=== PATIENT | male | born 1965 | race Caucasian/White ===

== ENCOUNTER → 2017-11-15 | Outpatient (CLI) | payer BC ==
[~2017-11-15] MED LIST: AMLO10TA3 PO; CHOL400T; EPLE50TA; EPLERENONE 50 MG; FLX10 PO; GLC/500 PO; GLC500 PO; GLIM2TAB PO; GLIM4TAB2 PO; HYDR25TA5; HYZ/10015 PO; INSHNI; INSU1INJ23 SQ; LIRA18IN; LISI40TA3 PO; POTA-335 PO
[2017-11-15 11:16] LABS: HEMOGLOBIN A1C 7.8 % (4.5-5.6)
[2017-11-15 11:23] LABS: ALBUMIN 3.9 gm/dl (3.4-5.0); ALT/SGPT 81 U/L (12-78); AST/SGOT 34 U/L (15-37); BLOOD UREA NITROGEN 17 mg/dl (7-18); CALCIUM 8.9 mg/dl (8.5-10.1); CARBON DIOXIDE 27 mmol/L (21-32); GLUCOSE 164 mg/dl (70-99); LDL CHOLESTEROL (DIRECT) 135 mg/dl; POTASSIUM 3.7 mmol/L (3.5-5.1); SODIUM 134 mmol/L (136-145)
[2017-11-15 11:36] LABS: ALKALINE PHOSPHATASE 98 U/L (45-117); CHOLESTEROL 209 mg/dl (0-200); TOTAL PROTEIN 7.8 gm/dl (6.4-8.2)
== END | disposition home or self-care (01) ==
LOC: C.LAB1850 09:35
PROVIDERS: ATTEND Internal Medicine Endocrinology, Diabetes & Metabolism
DX: E55.9 Vitamin D deficiency, unspecified (principal); E26.9 Hyperaldosteronism, unspecified; Z86.39 Personal history of other endocrine, nutritional and metabolic disease; D49.7 Neoplasm of unspecified behavior of endocrine glands and other parts of nervous system; I10 Essential (primary) hypertension; E66.9 Obesity, unspecified; E11.9 Type 2 diabetes mellitus without complications; E78.5 Hyperlipidemia, unspecified; R80.9 Proteinuria, unspecified

== ENCOUNTER 2018-03-30 13:08 | Emergency (ER) | payer BC, OTHER ==
[~2018-03-30] VITALS: Ht 189.2 cm; Wt 116.5 kg
[~2018-03-30 13:08] MED LIST changes: -AMLO10TA3 PO; -CHOL400T; -EPLE50TA; -GLC/500 PO; -GLIM2TAB PO; -GLIM4TAB2 PO; -HYDR25TA5; -HYZ/10015 PO; -INSHNI; -INSU1INJ23 SQ; -LIRA18IN; -LISI40TA3 PO
[2018-03-30 13:14] VITALS: TEMP 36.6; Ht 189.2 cm; Wt 116.5 kg
[2018-03-30] MEDS ORDERED: OPTIRAY 320 IV PRN (13:45)
[2018-03-30 13:55] LABS: BASO % 0.4 %; BASO ABS # 0.03 K/uL (0-0.2); EOS % 0.2 %; EOS ABS # 0.02 K/uL (0-0.5); HEMATOCRIT 44.2 % (42-52); HEMOGLOBIN 15.8 g/dL (14.0-18.0); IG# 0.01 K/uL (0.00-0.02); LYMPH % 16.6 %; LYMPH ABS # 1.33 K/uL (1.2-3.4); MEAN CELL VOLUME 79.9 fL (80-100); MEAN CORPUSCULAR HEMOGLOBIN 28.6 pg (25-34); MEAN CORPUSCULAR HGB CONC 35.7 g/dl (32-36); MEAN PLATELET VOLUME 10.8 fL (7.4-10.4); MONO % 10.5 %; MONO ABS # 0.84 K/uL (0.11-0.59); NEUT % 72.2 %; PLATELET COUNT 183 K/uL (130-400); RED CELL DISTRIBUTION WIDTH CV 13.3 % (11.5-14.5); RED CELL DISTRIBUTION WIDTH SD 38.3 fL (36.4-46.3); WHITE BLOOD COUNT 8.03 K/uL (4.8-10.8)
[2018-03-30 14:13] LABS: ALBUMIN 3.6 gm/dl (3.4-5.0); CALCIUM 8.7 mg/dl (8.5-10.1); CREATININE 1.09 mg/dl (0.60-1.40); POTASSIUM 3.5 mmol/L (3.5-5.1)
[2018-03-30] MEDS ORDERED: GLC/500 PO (14:15)
[2018-03-30] MEDS ORDERED: AMLO-114 PO (14:15)
[2018-03-30] MEDS ORDERED: GLIM4TAB2 PO (14:15)
[2018-03-30] MEDS ORDERED: LIRA18IN (14:15)
[2018-03-30] MEDS ORDERED: GLIM2TAB PO (14:15)
[2018-03-30] MEDS ORDERED: INSHNI (14:15)
[2018-03-30] MEDS ORDERED: HYZ/10015 PO (14:15)
[2018-03-30] MEDS ORDERED: LSN40 PO (14:15)
[2018-03-30] MEDS ORDERED: EPLE50TA (14:15)
[2018-03-30] MEDS ORDERED: HYDR25TA5 (14:15)
[2018-03-30] MEDS ORDERED: CHOL400T (14:15)
[2018-03-30] MEDS ORDERED: INSU1INJ23 SQ (14:15)
[2018-03-30 14:24] LABS: TOTAL PROTEIN 7.7 gm/dl (6.4-8.2)
--- NOTE | 2018-03-30 14:57 | EMERGENCY ROOM VISIT NOTE ---
History First contact with patient: 13:18 Chief Complaint: GI ASSESSMENT Stated Complaint: FEVER, GI DISTRESS, REF BY Nursing Triage Summary: Pt ambulates to room. Reports diarrhea since Monday. Went to [facility] and suggested that pt should go to the ER because no BS x 4 quads present. Auscultated hypo bowel sounds x 4 quads. Abd distended, soft ad tender in lower quads. History of Present Illness The patient is a 52 year old male who presents to the Emergency Room via private vehicle with complaints of "fever, GI distress, referred by ". The patient states that since Monday he has been experiencing lower abdominal cramping, decreased bowel movements and nausea. He states it is been increasingly worsening. At times of a fever with T-max being 101.8 orally. He has been diaphoretic. He denies any chest pain or shortness of breath. He has never had this before. He notes that he has had a few episodes of liquid diarrhea, with his last solid bowel movement being Monday. He notes that this is exacerbated by eating food. Review of Systems A complete 10-point Review of Systems was discussed with the patient, with pertinent positives and negatives listed in the History of Present Illness. All remaining Review of Systems questions can be considered negative unless otherwise specified. Past Medical/Surgical History No pertinent Family History Non contributory Social History Smoking Status: Never Smoker Pt. lives locally Current/Historical Medications Scheduled Amlodipine (Norvasc), 10 MG PO DAILY Glimepiride (Glimepiride), 1 TAB PO DAILY Hctz/Losartan (Hyzaar 25MG/100MG), 1 TAB PO DAILY Insulin Isophane (Human) (Humulin N Kwikpen), 60-100 UNITS SQ QPM Lisinopril (Lisinopril), 1 TAB PO DAILY Metformin Hcl (Glucophage), 500 MG PO BID Miscellaneous Medications Cholecalciferol (Vitamin D) Eplerenone (Inspra) Glimepiride (Amaryl), 2 MG PO Hydrochlorothiazide (Hydrochlorothiazide) Insulin Human NPH (Humulin N) Liraglutide (Victoza) Physical Exam Vital Signs Date Time Temp Pulse Resp B/P (MAP) Pulse Ox O2 Delivery O2 Flow Rate FiO2 03/30/18 17:01 85 16 123/77 97 Room Air 03/30/18 15:28 82 123/79 96 Room Air 03/30/18 13:14 36.6 87 18 131/74 96 Room Air Physical Exam VITAL SIGNS - Vital signs and nursing notes were reviewed. Stable. GENERAL -52-year-old male appearing his stated age who is in no acute distress. Communicates well with provider and answers questions appropriately. SKIN - Without rashes. HEAD - NC/AT. EYES - PERRL with EOMI bilaterally. Sclera anicteric. EARS - No deformities of external structures noted on gross examination bilaterally. LUNGS - Chest wall symmetric without accessory muscle use, intercostals retractions, or central cyanosis. Normal vesicular breath sounds CTA B/L. No wheezes, rales, or rhonchi appreciated. CARDIAC - RRR with S1/S2. No murmur, rubs, or gallops appreciated. ABDOMEN - Abdominal contour normal without pulsations or visible masses. Decreased bowel sounds noted in the lower quadrants. There is left upper quadrant abdominal bowel sounds noted. These are hypoactive. There is also minimal generalized abdominal tenderness. No rebound tenderness. No surgical abdomen. EXTREMITIES - No clubbing or peripheral cyanosis. No pretibial edema present. +5 /5 strength noted in UE/LE bilaterally. NEUROLOGIC - Cranial nerves II through XII grossly intact. Sensory intact to light touch throughout. PSYCH - A&O, and cooperates fully with examiner. Pt is very pleasant and interacts well with examiner. Medical Decision & Procedures ER Provider Diagnostic Interpretation: ABDOMEN AND PELVIS CT WITH IV AND ORAL CONTRAST CT DOSE: 1093.36 mGycm HISTORY: lower abdomininal pain, nausea, decrease stool output TECHNIQUE: Multiaxial CT images of the abdomen and pelvis were performed following the use of intravenous and oral contrast. A dose lowering technique was utilized adhering to the principles of ALARA. COMPARISON STUDY: Abdominal CT 01/20/2011. FINDINGS: Groundglass opacities within the right lung base favor mild dependent changes. No pneumoperitoneum. No pneumatosis. No suspicious lytic or blastic osseous lesions. Bilateral gynecomastia. Mild hepatic steatosis is again noted. The gallbladder, pancreas, spleen, adrenal glands, and kidneys are unremarkable. No hydronephrosis. No retroperitoneal lymphadenopathy. Normal caliber abdominal aorta. The bladder is unremarkable. Mild diffuse thickening of the entire colon with mild pericolonic fat stranding. This is most pronounced within the ascending colon and cecum. This is consistent with a pancolitis. No evidence for bowel obstruction. Normal appendix. IMPRESSION: 1. Nonspecific pancolitis. This is likely due to an infectious or inflammatory process. 2. No evidence for bowel obstruction. 3. Normal appendix. 4. Mild hepatic steatosis. Electronically signed by: Vitaliy Shahid M.D. 03/30/2018 4:58 PM Dictated Date/Time: 03/30/2018 4:51 PM Laboratory Results 03/30/18 13:34 Red Blood Count 5.53, Mean Corpuscular Volume 79.9, Mean Corpuscular Hemoglobin 28.6, Mean Corpuscular Hemoglobin Concent 35.7, Mean Platelet Volume 10.8, Neutrophils (%) (Auto) 72.2, Lymphocytes (%) (Auto) 16.6, Monocytes (%) (Auto) 10.5, Eosinophils (%) (Auto) 0.2, Basophils (%) (Auto) 0.4, Neutrophils # (Auto ) 5.80, Lymphocytes # (Auto) 1.33, Monocytes # (Auto) 0.84, Eosinophils # (Auto ) 0.02, Basophils # (Auto) 0.03 03/30/18 13:34 Test 03/30/18 13:34 03/30/18 13:55 White Blood Count 8.03 K/uL (4.8-10.8) Red Blood Count 5.53 M/uL (4.7-6.1) Hemoglobin 15.8 g/dL (14.0-18.0) Hematocrit 44.2 % (42-52) Mean Corpuscular Volume 79.9 fL (80-100) Mean Corpuscular Hemoglobin 28.6 pg (25-34) Mean Corpuscular Hemoglobin Concent 35.7 g/dl (32-36) Platelet Count 183 K/uL (130-400) Mean Platelet Volume 10.8 fL (7.4-10.4) Neutrophils (%) (Auto) 72.2 % Lymphocytes (%) (Auto) 16.6 % Monocytes (%) (Auto) 10.5 % Eosinophils (%) (Auto) 0.2 % Basophils (%) (Auto) 0.4 % Neutrophils # (Auto) 5.80 K/uL (1.4-6.5) Lymphocytes # (Auto) 1.33 K/uL (1.2-3.4) Monocytes # (Auto) 0.84 K/uL (0.11-0.59) Eosinophils # (Auto) 0.02 K/uL (0-0.5) Basophils # (Auto) 0.03 K/uL (0-0.2) RDW Standard Deviation 38.3 fL (36.4-46.3) RDW Coefficient of Variation 13.3 % (11.5-14.5) Immature Granulocyte % (Auto) 0.1 % Immature Granulocyte # (Auto) 0.01 K/uL (0.00-0.02) Anion Gap 6.0 mmol/L (3-11) Est Creatinine Clear Calc Drug Dose 105.8 ml/min Estimated GFR () 88.7 Estimated GFR (Non- 76.5 BUN/Creatinine Ratio 14.7 (10-20) Calcium Level 8.7 mg/dl (8.5-10.1) Magnesium Level 1.9 mg/dl (1.8-2.4) Total Bilirubin 1.2 mg/dl (0.2-1) Aspartate Amino Transf (AST/SGOT) 21 U/L (15-37) Alanine Aminotransferase (ALT/SGPT) 54 U/L (12-78) Alkaline Phosphatase 100 U/L (45-117) Total Protein 7.7 gm/dl (6.4-8.2) Albumin 3.6 gm/dl (3.4-5.0) Globulin 4.1 gm/dl (2.5-4.0) Albumin/Globulin Ratio 0.9 (0.9-2) Lipase 111 U/L (73-393) Thyroid Stimulating Hormone (TSH) 1.580 uIu/ml (0.300-4.500) Urine Color YELLOW Urine Appearance CLEAR (CLEAR) Urine pH 5.0 (4.5-7.5) Urine Specific Otis 1.026 (1.000-1.030) Urine Protein NEG (NEG) Urine Glucose (UA) 3+ (NEG) Urine Ketones NEG (NEG) Urine Occult Blood NEG (NEG) Urine Nitrite NEG (NEG) Urine Bilirubin NEG (NEG) Urine Urobilinogen NEG (NEG) Urine Leukocyte Esterase NEG (NEG) Medical Decision Patient was seen and evaluated as above in room C 10. Review was performed of nursing notes and vital signs. After obtaining a thorough history and physical examination the above work up was performed. He presents to us today with diffuse abdominal pain, worse on the right side as well as diarrhea. He is nontoxic on examination. No evidence of surgical examination. CBC reveals no leukocytosis or anemia. Metabolic panel reveals no evidence of kidney or liver function. Bilirubin elevated at 1.2. TSH is normal. Urinalysis reveals 3+ glucose. He does have diabetes. CT scan of the abdomen and pelvis with IV and oral contrast was obtained. Results as above. There is pancolitis. I suspect this is likely either viral or food etiology. Stool culture, C. difficile and Giardia test pending. At this time I will refrain from adding any antibiotics. He is to follow with his family doctor and possibly GI. He notes that he is due for a colonoscopy. I did reveal/review all test results with the patient and his today. He is to utilize a bland diet for the next few days and return with worsening. The patient was educated upon management, had questions answered prior to discharge, and was discharged home in good condition. Case was discussed with the attending physician. In the evaluation and treatment of this patient the following differential diagnoses were entertained: Colitis, C. difficile, perforation, appendicitis, diverticulitis, pancreatitis, acute cholecystitis, among others. Impression Primary Impression: Pancolitis Departure Information Dispostion Home / Self-Care Condition GOOD Referrals Abel Bowens M.D. (PCP) Martha Lee, DO Patient Instructions ED Diet [place], [facility] Additional Instructions You have been treated in the Emergency Department your Abdominal Pain. Laboratory results and imaging studies have ruled out any emergent causes for your abdominal pain which would warrant admission or surgery. There is pancolitis which is inflammation of your intestine. This is likely from a small infection. For pain control, you can use the following [id number] medicines: - Regular strength (325mg/tab) Tylenol (acetaminophen) 2 tabs every 4-6 hours as needed. Do not exceed 12 tablets in a 24 hour period. Avoid taking more than 3 grams (3000 mg) of Tylenol per day. This includes any other sources of acetaminophen you may take on a regular basis. - Regular strength (200 mg/tab) Advil (ibuprofen) 1-2 tabs every 4-6 hours as needed. Do not exceed a dose of 3200 mg per day. Drink plenty of water and stay well hydrated. As with any trip to the Emergency Department, you should follow-up with your Primary Care Provider from today's visit. I have also listed the contact information for GI. It is recommended he follow- up with them. If you do not hear back from us within 3 days regarding your stool culture please call here at [phone]. Please ask the charge nurse to discuss your stool culture result. Thank you Return to the emergency department if your symptoms persist despite treatment plan outlined above or if the following symptoms occur: increased fevers, chills , worsening nausea/vomiting, blood in your stool or urine. Thank you for your time.
--- NOTE | 2018-03-30 17:00 | DIAGNOSTIC IMAGING REPORT ---
ABDOMEN AND PELVIS CT WITH IV AND ORAL CONTRAST CT DOSE: 1093.36 mGycm HISTORY: lower abdomininal pain, nausea, decrease stool output TECHNIQUE: Multiaxial CT images of the abdomen and pelvis were performed following the use of intravenous and oral contrast. A dose lowering technique was utilized adhering to the principles of ALARA. COMPARISON STUDY: Abdominal CT 01/20/2011. FINDINGS: Groundglass opacities within the right lung base favor mild dependent changes. No pneumoperitoneum. No pneumatosis. No suspicious lytic or blastic osseous lesions. Bilateral gynecomastia. Mild hepatic steatosis is again noted. The gallbladder, pancreas, spleen, adrenal glands, and kidneys are unremarkable. No hydronephrosis. No retroperitoneal lymphadenopathy. Normal caliber abdominal aorta. The bladder is unremarkable. Mild diffuse thickening of the entire colon with mild pericolonic fat stranding. This is most pronounced within the ascending colon and cecum. This is consistent with a pancolitis. No evidence for bowel obstruction. Normal appendix. IMPRESSION: 1. Nonspecific pancolitis. This is likely due to an infectious or inflammatory process. 2. No evidence for bowel obstruction. 3. Normal appendix. 4. Mild hepatic steatosis. Electronically signed by: Vitaliy Shahid M.D. 03/30/2018 4:58 PM Dictated Date/Time: 03/30/2018 4:51 PM
[2018-03-30 17:45] VITALS: BP 124/78; PULSE 76; O2SAT 96
--- NOTE | 2018-04-02 12:22 | Pharmacy Progress Note ---
ED Pharmacist Culture FollowUp Date of Service: April 02, 2018. Campylobacter jejuni isolated from stool culture. Per nursing notes, patient has already been informed and plan for care discussed / prescription provided. No further intervention required at this time.
== END 2018-03-30 17:43 | disposition home or self-care (01) ==
LOC: C.EDB 13:10 → C.EDC 17:43
DX: K51.00 Ulcerative (chronic) pancolitis without complications (principal); E11.9 Type 2 diabetes mellitus without complications; Z79.4 Long term (current) use of insulin

== ENCOUNTER 2024-04-02 20:12 | Observation (INO) ==
[2024-04-02 21:06] LABS: Basophils % (auto) 1.1 %; Eosinophils # (auto) 0.15 K/uL (0.00-0.50); Eosinophils % (auto) 1.7 %; Hematocrit (blood only) 44.6 % (42.0-52.0); Immature Granulocytes # (auto) 0.03 K/uL (0.01-0.20); Immature Granulocytes % (auto) 0.3 %; Lymphocytes % (auto) 29.9 %; Mean Corpuscular Hemoglobin 28.6 pg (25.0-34.0); Mean Corpuscular Hgb Conc 35.9 g/dL (32.0-36.0); Mean Corpuscular Volume 79.6 fL (80.0-100.0); Monocytes # (auto) 0.61 K/uL (0.11-0.59); Neutrophils # (auto) 5.21 K/uL (1.40-6.50); Platelet Count 267 K/uL (130-400); RDW Coefficient of Variation 13.4 % (11.5-14.5); RDW Standard Deviation 38.5 fL (36.4-46.3)
[2024-04-02 21:24] LABS: Appearance Urine Clear (Clear); Bilirubin Urine Negative (Negative); Blood Urine Negative (Negative); Color Urine Yellow; Glucose Urine UA 3+ (Negative); Ketones Urine Negative (Negative); Leukocyte Esterase Urine Negative (Negative); Nitrite Urine Negative (Negative); Protein Urine Negative (Negative); Specific Gravity Urine 1.031 (1.000-1.030); Urobilinogen Urine Negative (Negative)
--- NOTE | 2024-04-02 21:24 | CT Scan Report ---
Exam(s): CT HEAD Without Contrast EXAM: CT Head Without Intravenous Contrast CLINICAL HISTORY: Reason for exam: syncope. TECHNIQUE: Axial computed tomography images of the head/brain without intravenous contrast. CTDI is 36.18 mGy and DLP is 624.41 mGy-cm. Automated exposure control was utilized for the study. A dose lowering technique was utilized adhering to the principles of ALARA. COMPARISON: Brain MRI May 07, 2021. FINDINGS: No acute intracranial hemorrhage. No midline shift or mass effect. The territorial guido-white matter differentiation is maintained throughout. Age-related cerebral volume loss. Periventricular and subcortical white matter hypoattenuation, consistent with chronic microangiopathy. The visualized orbits appear grossly unremarkable. The calvarium is intact. The visualized paranasal sinuses and mastoid air cells are grossly clear. IMPRESSION: No acute intracranial hemorrhage, midline shift, or mass effect. Electronically signed by: Robles Jones MD 04/02/24 21:23 PM
--- NOTE | 2024-04-02 21:25 | CT Scan Report ---
Exam(s): CT C SPINE EXAM: CT Cervical Spine Without Intravenous Contrast CLINICAL HISTORY: Reason for exam: fall, injury. TECHNIQUE: Axial computed tomography images of the cervical spine without intravenous contrast. CTDI is 26.3 mGy and DLP is 647.9 mGy-cm. Automated exposure control was utilized for the study. A dose lowering technique was utilized adhering to the principles of ALARA. COMPARISON: No relevant prior studies available. FINDINGS: The vertebral body heights are maintained. The craniocervical junction is intact. The atlanto-dens interval is maintained. The dens is intact. There is no spondylolisthesis. Multilevel cervical spondylosis and degenerative disc disease. Straightening of the cervical lordosis. The unenhanced neck soft tissues are grossly unremarkable. The visualized lung apices are grossly clear. IMPRESSION: No acute fracture or subluxation of the cervical spine. Electronically signed by: Robles Jones MD 04/02/24 21:24 PM
[2024-04-02 21:46] LABS: Glucose 336 mg/dl (70-99(Fasting))
[2024-04-02 21:47] LABS: Alanine Aminotransferase 68 U/L (7-52); Albumin Globulin Ratio 1.7 (0.9-2); Albumin Level 4.3 gm/dl (3.4-5.0); Alkaline Phosphatase 72 U/L (34-104); Anion Gap 10 (3-11); BUN Creatinine Ratio 20.7 (10-20); Bilirubin,Total 0.2 mg/dl (0.2-1.0); Blood Urea Nitrogen 23 mg/dl (6-23); Calcium 9.8 mg/dl (8.6-10.3); Carbon Dioxide 26 mmol/L (21-32); Chloride 97 mmol/L (98-107); Est GFR (African American) 83.2 ml/min; Est GFR (Non-African American) 71.8 ml/min; Globulin 2.6 gm/dl (2.5-4.0); Sodium 133 mmol/L (136-145); Total Protein 6.9 gm/dl (6.0-8.3)
[2024-04-02] MEDS: SODIUM CHLORIDE 0.9% 1,000 ML IV ONE (22:16)
[2024-04-02 22:40] LABS: Aspartate Aminotransferase 51 U/L (13-39); Magnesium 1.9 mg/dl (1.7-2.4); Potassium 4.1 mmol/L (3.5-5.1)
--- NOTE | 2024-04-02 22:55 | Emergency Department Note ---
History of Present Illness General Chief complaint: Syncope (Near Syncope) Stated complaint: FAINTED, HIT HEAD, RT HIP/KNEE PAIN Time Seen by Provider: 04/02/24 22:07 History of Present Illness This 58-year-old male presents ER for syncope. Patient states they went out to dinner for their anniversary when he got home he got out of the car else out of it for second and then collapsed. He hit his head on the car. Patient states he feels much better now. He has mild hip pain but is been ambulating without difficulties. No recent history of syncope. Patient denies chest pain, dyspnea, abdominal pain, numbness, tingling, localized weakness. No blood thinners. Does have diabetes. He states he acute Lyme pie and believes this is why his blood sugar is elevated. No prior cardiac disease. Home Medications Medication Instructions Recorded Confirmed Type blood-glucose meter (Accu-Chek #1 ea 06/04/20 06/26/23 Rx Guide Glucose Meter) cholecalciferol (vitamin D3) 50 50 mcg PO DAILY 06/09/21 04/02/24 History mcg (2,000 unit) capsule cyanocobalamin (vitamin B-12) 1,000 mcg PO DAILY 02/25/22 04/02/24 History 1,000 mcg capsule magnesium oxide 400 mg PO DAILY #30 caps 02/25/22 04/02/24 Rx Accu-Chek Fastclix Lancet Drum #400 ea 10/21/22 06/26/23 Rx (lancets) empagliflozin 25 mg tablet 25 mg PO DAILY #90 tabs 03/20/23 04/02/24 Rx (Jardiance) blood sugar diagnostic (Accu-Chek #200 ea 05/22/23 06/26/23 Rx Guide test strips) testosterone 2 pump topical DAILY #225 grams 10/06/23 04/02/24 Rx semaglutide 1 mg/dose (4 mg/3 mL) 1 mg (0.75 mL) subcut Q7D 30 days 11/27/23 04/02/24 Rx subcutaneous pen injector (Ozempic) #3 mL pen needle, diabetic 32 gauge x #200 ea 12/04/23 Rx 5/32" (BD Ultra-Fine Danelle Pen Needle) amlodipine 10 mg tablet 10 mg PO DAILY #90 tabs 01/31/24 04/02/24 Rx eplerenone 50 mg tablet 50 mg PO BID #180 tabs 02/28/24 04/02/24 Rx hydrochlorothiazide 25 mg tablet 25 mg PO DAILY #90 tabs 02/28/24 04/02/24 Rx lisinopril 40 mg tablet 40 mg PO DAILY #90 tabs 02/28/24 04/02/24 Rx metformin 500 mg tablet 1,000 mg (2 x 500 mg) PO BID 90 02/28/24 04/02/24 Rx days #360 tabs Novolin N FlexPen 100 unit/mL (3 130 unit (1.3 mL) subcut HS 90 03/28/24 04/02/24 Rx mL) subcutaneous insulin pen days #120 mL (insulin NPH isoph U-100 human) ammonium lactate 12 % lotion 1 applic topical DAILY PRN 04/02/24 04/02/24 History NEEDED aspirin 81 mg tablet,delayed 81 mg PO DAILY 04/02/24 04/02/24 History release glimepiride 4 mg tablet 4 mg PO QPM 04/02/24 04/02/24 History liraglutide 0.6 mg/0.1 mL (18 mg/3 1.8 mg subcut DAILY 04/02/24 04/02/24 History mL) subcutaneous pen injector (Victoza 3-Shaji) rosuvastatin 5 mg tablet (Crestor) 5 mg PO WK 04/02/24 04/02/24 History Allergies Allergy/AdvReac Type Severity Reaction Status Date / Time atorvastatin AdvReac Severe Leg Cramps Verified 04/02/24 22:50 Past Med/Surg History Problem List (Updated 04/02/24 @ 23:50 by Johanny Cosme PA-C) Acute hyperglycemia (Acute) Syncope (Acute) Overweight Vitamin D deficiency Background diabetic retinopathy associated with type 2 diabetes mellitus No significant past surgical history Hypertension 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 Diabetes type 2, controlled Dysesthesia Dyslipidemia Hyperprolactinemia Hypogonadotropic hypogonadism in male Loss of protective sensation of skin of foot Pituitary neoplasm Severe obstructive sleep apnea Social History Smoking Status: Never smoker Preferred Language: Grenadian Feels Safe at Home: Yes Review of Systems A total of 10 systems reviewed and were otherwise negative Physical Exam Vital Signs Vital Signs - 24 hr 04/02/24 20:24 04/02/24 22:23 04/02/24 22:31 Temperature 36.8 C Temperature Source Temporal Artery Scan Pulse Rate - Lying 87 Pulse Rate - Sitting 95 H Pulse Rate - Standing 99 H Pulse Rate 91 H Pulse Rate [Apical] 85 Pulse Rhythm Pulse Rhythm [Apical] Regular Pulse Strength [Apical] Normal Respiratory Rate 18 17 Respiratory Effort / Characteristics Non-Labored Spontaneous Respiratory Depth Normal Respiratory Pattern Regular Blood Pressure - Lying 171/90 H Blood Pressure - Sitting 166/86 H Blood Pressure- Standing 169/90 H Blood Pressure 155/85 H Blood Pressure [Right Arm] 172/97 H Blood Pressure Mean 108 Blood Pressure Mean [Right Arm] 122 Blood Pressure Position [Right Arm] Sitting Pulse Oximetry 95 93 Oxygen Delivery Method Room Air Room Air Sepsis Recent Fever Within 48 Hours No Sepsis New/Unexplained Change in Mental Status No Sepsis Action Taken by Nursing No Action Required 04/02/24 22:32 04/02/24 22:39 Temperature Temperature Source Pulse Rate - Lying Pulse Rate - Sitting Pulse Rate - Standing Pulse Rate 86 86 Pulse Rate [Apical] Pulse Rhythm Regular Pulse Rhythm [Apical] Pulse Strength [Apical] Respiratory Rate 18 Respiratory Effort / Characteristics Respiratory Depth Respiratory Pattern Blood Pressure - Lying Blood Pressure - Sitting Blood Pressure- Standing Blood Pressure Blood Pressure [Right Arm] Blood Pressure Mean Blood Pressure Mean [Right Arm] Blood Pressure Position [Right Arm] Pulse Oximetry 94 Oxygen Delivery Method Room Air Sepsis Recent Fever Within 48 Hours Sepsis New/Unexplained Change in Mental Status Sepsis Action Taken by Nursing VITALS: Vitals are noted on the nurse's note and reviewed by myself. Vital signs stable. GENERAL: Pleasant gentleman with present, in no acute distress, nondiaphoretic, well-developed well-nourished. SKIN: The skin was without rashes, erythema, edema, or bruising. There is no tenting of the skin. Capillary reflex less than 2 seconds. HEAD: Normocephalic atraumatic. EARS: External auditory canals clear EYES: Pupils equal round and reactive to light and accommodation. Conjunctivae without injection, sclerae without icterus. Extraocular movements intact. NOSE: Patent, no discharge. MOUTH: Mucous membranes moist. Pharynx without erythema or exudate. Uvula midline. Airway patent. Tongue does not deviate. NECK: Supple without nuchal rigidity. No lymphadenopathy. No thyromegaly. Cervical spine is nontender. No JVD. HEART: Regular rate and rhythm LUNGS: Clear to auscultation bilaterally without wheezes, rales or rhonchi. No retractions or accessory muscle use. ABDOMEN: Positive bowel sounds x 4. Normal tympanic percussion. Soft, nontender, without masses or organomegaly. Galvan sign negative. No guarding or rebound tenderness. No CVA tenderness MUSCULOSKELETAL: No muscle atrophy, erythema, or edema noted. 5-5 strength throughout. No thoracic or lumbar tenderness. Pelvis stable. NEURO: Patient was alert and oriented to person place and time. Cranial nerves II through XII grossly intact. No pronator drift. Cerebellar exam intact. Normal sensation to light and sharp touch. No focal neurological deficits. Course Administered Medications Discontinued Medications Sodium Chloride (Nss) 1,000 mls @ 999 mls/hr IV .Q1H1M ONE Stop: 04/02/24 23:08 Last Infusion: 04/02/24 23:40 Dose: Infused Documented By: Admin: 04/02/24 22:16 Dose: 999 mls/hr Documented By: EUGENE Medical Decision Making Medical Records Attestation: I reviewed the patient's medical records. Home Medications Current Medication List: was personally reviewed by me Laboratory Data Attestation: I reviewed the patient's lab results. 04/02/24 20:35 04/02/24 20:35 Lab Results 04/02/24 04/02/24 04/02/24 Range/Units 20:35 20:53 22:23 WBC 8.70 (4.8-10.8) K/ul RBC 5.60 (4.70-6.10) M/uL Hgb 16.0 (14.0-18.0) g/dl Hct 44.6 (42.0-52.0) % MCV 79.6 L (80.0-100.0) fL MCH 28.6 (25.0-34.0) pg MCHC 35.9 (32.0-36.0) g/dL RDW Std Deviation 38.5 (36.4-46.3) fL RDW Coeff of Dior 13.4 (11.5-14.5) % Plt Count 267 (130-400) K/uL MPV 12.0 (9.4-12.4) fL Immature Gran % (Auto) 0.3 % Neut % (Auto) 60.0 % Lymph % (Auto) 29.9 % [place] % (Auto) 7.0 % Eos % (Auto) 1.7 % Baso % (Auto) 1.1 % Neut # (Auto) 5.21 (1.40-6.50) K/uL Lymph # (Auto) 2.60 (1.20-3.40) K/uL [place] # (Auto) 0.61 H (0.11-0.59) K/uL Eos # (Auto) 0.15 (0.00-0.50) K/uL Baso # (Auto) 0.10 (0.00-0.20) K/uL Immature Gran # (Auto) 0.03 (0.01-0.20) K/uL Sodium 133 L (136-145) mmol/L Potassium 4.1 (3.5-5.1) mmol/L Chloride 97 L (98-107) mmol/L Carbon Dioxide 26 (21-32) mmol/L Anion Gap 10 (3-11) BUN 23 (6-23) mg/dl Creatinine 1.11 (0.6-1.4) mg/dl Est Cr Clr Drug Dosing Not Reportable Est GFR ( Amer) 83.2 ml/min Est GFR (Non-Af Amer) 71.8 ml/min BUN/Creatinine Ratio 20.7 H (10-20) Glucose 336 H* (70-99(Fasting)) mg/dl POC Glucose (70-99) mg/dl Calcium 9.8 (8.6-10.3) mg/dl Magnesium 1.9 (1.7-2.4) mg/dl Total Bilirubin 0.2 (0.2-1.0) mg/dl AST 51 H (13-39) U/L ALT 68 H (7-52) U/L Alkaline Phosphatase 72 (34-104) U/L Troponin I High Sens 14.0 13.8 (0-20) pg/ml Total Protein 6.9 (6.0-8.3) gm/dl Albumin 4.3 (3.4-5.0) gm/dl Globulin 2.6 (2.5-4.0) gm/dl Albumin/Globulin Ratio 1.7 (0.9-2) TSH 2.245 (0.300-4.500) uIu/ml Urine Color Yellow Urine Appearance Clear (Clear) Urine pH 6.0 (4.5-7.5) Ur Specific [place] 1.031 H (1.000-1.030) Urine Protein Negative (Negative) Urine Glucose (UA) 3+ H (Negative) Urine Ketones Negative (Negative) Urine Blood Negative (Negative) Urine Nitrite Negative (Negative) Urine Bilirubin Negative (Negative) Urine Urobilinogen Negative (Negative) Ur Leukocyte Esterase Negative (Negative) 04/02/24 Range/Units 23:43 WBC (4.8-10.8) K/ul RBC (4.70-6.10) M/uL Hgb (14.0-18.0) g/dl Hct (42.0-52.0) % MCV (80.0-100.0) fL MCH (25.0-34.0) pg MCHC (32.0-36.0) g/dL RDW Std Deviation (36.4-46.3) fL RDW Coeff of Dior (11.5-14.5) % Plt Count (130-400) K/uL MPV (9.4-12.4) fL Immature Gran % (Auto) % Neut % (Auto) % Lymph % (Auto) % [place] % (Auto) % Eos % (Auto) % Baso % (Auto) % Neut # (Auto) (1.40-6.50) K/uL Lymph # (Auto) (1.20-3.40) K/uL [place] # (Auto) (0.11-0.59) K/uL Eos # (Auto) (0.00-0.50) K/uL Baso # (Auto) (0.00-0.20) K/uL Immature Gran # (Auto) (0.01-0.20) K/uL Sodium (136-145) mmol/L Potassium (3.5-5.1) mmol/L Chloride (98-107) mmol/L Carbon Dioxide (21-32) mmol/L Anion Gap (3-11) BUN (6-23) mg/dl Creatinine (0.6-1.4) mg/dl Est Cr Clr Drug Dosing Est GFR ( Amer) ml/min Est GFR (Non-Af Amer) ml/min BUN/Creatinine Ratio (10-20) Glucose (70-99(Fasting)) mg/dl POC Glucose 278 H (70-99) mg/dl Calcium (8.6-10.3) mg/dl Magnesium (1.7-2.4) mg/dl Total Bilirubin (0.2-1.0) mg/dl AST (13-39) U/L ALT (7-52) U/L Alkaline Phosphatase (34-104) U/L Troponin I High Sens (0-20) pg/ml Total Protein (6.0-8.3) gm/dl Albumin (3.4-5.0) gm/dl Globulin (2.5-4.0) gm/dl Albumin/Globulin Ratio (0.9-2) TSH (0.300-4.500) uIu/ml Urine Color Urine Appearance (Clear) Urine pH (4.5-7.5) Ur Specific [place] (1.000-1.030) Urine Protein (Negative) Urine Glucose (UA) (Negative) Urine Ketones (Negative) Urine Blood (Negative) Urine Nitrite (Negative) Urine Bilirubin (Negative) Urine Urobilinogen (Negative) Ur Leukocyte Esterase (Negative) Imaging Data Attestation: I personally reviewed and interpreted this imaging study as follows: Radiologist's Impression: Cervical Spine CT 04/02/24 20:28 Exam(s): CT C SPINE EXAM: CT Cervical Spine Without Intravenous Contrast CLINICAL HISTORY: Reason for exam: fall, injury. TECHNIQUE: Axial computed tomography images of the cervical spine without intravenous contrast. CTDI is 26.3 mGy and DLP is 647.9 mGy-cm. Automated exposure control was utilized for the study. A dose lowering technique was utilized adhering to the principles of ALARA. COMPARISON: No relevant prior studies available. FINDINGS: The vertebral body heights are maintained. The craniocervical junction is intact. The atlanto-dens interval is maintained. The dens is intact. There is no spondylolisthesis. Multilevel cervical spondylosis and degenerative disc disease. Straightening of the cervical lordosis. The unenhanced neck soft tissues are grossly unremarkable. The visualized lung apices are grossly clear. IMPRESSION: No acute fracture or subluxation of the cervical spine. Electronically signed by: Robles Jones MD 04/02/24 21:[address] 04/02/24 20:28 Exam(s): CT HEAD Without Contrast EXAM: CT Head Without Intravenous Contrast CLINICAL HISTORY: Reason for exam: syncope. TECHNIQUE: Axial computed tomography images of the head/brain without intravenous contrast. CTDI is 36.18 mGy and DLP is 624.41 mGy-cm. Automated exposure control was utilized for the study. A dose lowering technique was utilized adhering to the principles of ALARA. COMPARISON: Brain MRI May 07, 2021. FINDINGS: No acute intracranial hemorrhage. No midline shift or mass effect. The territorial guido-white matter differentiation is maintained throughout. Age-related cerebral volume loss. Periventricular and subcortical white matter hypoattenuation, consistent with chronic microangiopathy. The visualized orbits appear grossly unremarkable. The calvarium is intact. The visualized paranasal sinuses and mastoid air cells are grossly clear. IMPRESSION: No acute intracranial hemorrhage, midline shift, or mass effect. Electronically signed by: Robles Jones MD 04/02/24 21:23 PM MDM Narrative Prior records/ancillary studies reviewed. Triage Nursing notes reviewed. Additional history obtained from family. The patient's history was concerning for syncope. Differential diagnosis: Etiologies such as vasovagal event, infection, hypoglycemia, electrolyte abnormalities, cardiac sources, intracerebral event, toxicologic, neurologic, as well as others were entertained. Physical examination: As above ER treatment provided: IV hydration with normal saline On reassessment the patient felt better. An order was placed for continuous cardiac monitoring. The monitor shows a rate of 60-100 with a sinus rhythm per my interpretation. Diagnostics interpretation by me: ECG: ordered for syncope ECG: Normal sinus, left bundle, no acute ST-T wave changes, impression left bundle branch block with a first-degree AV block independently interpreted by myself. This is new from prior EKG The labs Independently Interpreted by myself revealed hyperglycemia without DKA Negative troponin Imaging studies: CTs were negative Chest x-ray with no acute consolidation, pneumothorax or free air per my independent interpretation Consultation: A consultation was placed with the hospitalist. The case was discussed and diagnostics were reviewed. The patient was evaluated in the ER for further treatment. This appears to be consistent with syncope. Imaging is negative. Stable labs. New left bundle. Medicine was consulted case discussed. Patient admitted to the medical service for further evaluation and workup for syncopal episode. By the evaluation outlined above emergent etiologies such as infection, hypoglycemia, electrolyte abnormalities, intracerebral event, toxicologic, neurologic,as well as others were deemed relatively unlikely. The pt informed about the findings as listed above. All questions were answered and pleased with the treatment. The chart was completed utilizing [employer] Speech voice recognition software. Grammatical errors, random word insertions, pronoun errors, and incomplete sentences are an occassional consequence of this system due to software limitations, ambient noise, and hardware issues. Any formal questions or concerns about the content, text, or information contained within the body of this dictation should be directly addressed to the physician assistant teacher primary for clarification. Impression & Plan Syncope, Acute hyperglycemia Discharge Plan Visit Data Chief Complaint: Syncope (Near Syncope) Stated Complaint: FAINTED, HIT HEAD, RT HIP/KNEE PAIN ED Provider: Andrew Woodall ED Midlevel Provider: Johanny Cosme Discharge Problem: Syncope, Acute hyperglycemia Patient Disposition: Admitted As Inpatient Condition: Good Forms Stand Alone Forms: [employer] Prescriptions Prescriptions: No Action (DME) blood-glucose meter [Accu-Chek Guide Glucose Meter] Misc See Dose Instructions .ROUTE .MEDSUPPLY Qty: 1 0RF Rx Instructions: As directed (DME) lancets [Accu-Chek Fastclix Lancet Drum] Misc See Dose Instructions .ROUTE .MEDSUPPLY Qty: 400 3RF Rx Instructions: Test blood sugars 4 times a day Jardiance 25 mg tablet 25 mg PO DAILY Qty: 90 3RF (DME) Accu-Chek Guide test strips Strip See Rx Instructions .ROUTE .MEDSUPPLY Qty: 200 3RF Rx Instructions: Test blood sugars 2 times a day testosterone 20.25 mg/1.25 gram (1.62 %) gel in metered-dose pump 2 pump topical DAILY Qty: 225 0RF Rx Instructions: apply 1 pump amount over max area of EACH upper arm and shoulder 05/05/23 PDMP Queried ok to fill - TR (DME) pen needle, diabetic [BD Ultra-Fine Danelle Pen Needle] 32 gauge x 5/32" needle See Rx Instructions .ROUTE .MEDSUPPLY Qty: 200 3RF Dose Instruction: As directed Rx Instructions: Inject 2 times daily amlodipine 10 mg tablet 10 mg PO DAILY Qty: 90 3RF eplerenone 50 mg tablet 50 mg PO BID Qty: 180 3RF hydrochlorothiazide 25 mg tablet 25 mg PO DAILY Qty: 90 3RF lisinopril 40 mg tablet 40 mg PO DAILY Qty: 90 3RF metformin 500 mg tablet 1,000 mg PO BID 90 Days Qty: 360 3RF Novolin N FlexPen 100 unit/mL (3 mL) insulin pen 130 unit subcut HS 90 Days Qty: 120 1RF cholecalciferol (vitamin D3) 50 mcg (2,000 unit) capsule 50 mcg PO DAILY cyanocobalamin (vitamin B-12) 1,000 mcg capsule 1,000 mcg PO DAILY magnesium oxide 400 mg magnesium capsule 400 mg PO DAILY Qty: 30 0RF Ozempic 1 mg/dose (4 mg/3 mL) pen injector 1 mg subcut Q7D 30 Days Qty: 3 1RF Rx Instructions: PER PT "HAVING TROUBLE GETTING FROM PHARMACY, TAKING VICTOZA INSTEAD AT PRESENT". aspirin 81 mg Tablet,Delayed Release (Dr/Ec) 81 mg PO DAILY Victoza 3-Shaji 0.6 mg/0.1 mL (18 mg/3 mL) pen injector 1.8 mg SUBCUT DAILY ammonium lactate 12 % lotion 1 applic topical DAILY PRN (Reason: NEEDED) Rx Instructions: Apply to feet daily glimepiride 4 mg tablet 4 mg PO QPM Rx Instructions: PER PT "IF HAVING A LARGE MEAL AT NIGHT, WILL TAKE 4 MG THE NEXT AM". rosuvastatin [Crestor] 5 mg tablet 5 mg PO WK Rx Instructions: SUNDAYS Referrals Referrals: Abel Bowens MD [Primary Care Provider] - Discharge Problem: Syncope Qualifiers: Syncope type: unspecified Qualified Code(s): R55 - Syncope and collapse
[2024-04-02 23:13] LABS: Thyroid Stimulating Hormone 2.245 uIu/ml (0.300-4.500)
[2024-04-02 23:32] LABS: Troponin I High Sensitivity 13.8 pg/ml (0-20)
--- NOTE | 2024-04-03 00:24 | History & Physical Report ---
Date of Service April 03, 2024 Assessment & Plan (1) Syncope: (2) Acute hyperglycemia: (3) Hypertension: (4) Diabetic peripheral neuropathy associated with type 2 diabetes mellitus: (5) Primary aldosteronism: (6) Pituitary neoplasm: (7) Severe obstructive sleep apnea: (8) Hypogonadotropic hypogonadism in male: (9) Dyslipidemia: Plan Syncope- Glucose was noted to be 336 on admission, patient reports eating a pie rich in carbohydrates at his 30th anniversary dinner No other significant abnormality noted metabolically No loss of bowel or bladder control or postictal state suggestive of a seizure. His , who is a nurse, was with him the entire time, and noticed that he did in fact pass out. Denies any associated palpitations The patient will be admitted to telemetry for serial cardiac enzymes, serial EKG's, cardiac rhythm monitoring and a 2-D echocardiogram with Dopplers. 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 His was with him the entire time, and feels that he did in fact pass out completely. He just returned from his 30th anniversary meal, where he had unusually high carbohydrate intake. He reports that he had been feeling intermittently fatigued throughout the day, but that is not unusual for him. He has been wearing his CPAP at nighttime, and felt that it worked okay last night. Primary Care Provider: Abel Bowens MD The patient is a 58-year-old male with a past medical history including vitamin D deficiency, background diabetic retinopathy, diabetes mellitus type 2, hypertension, diabetic peripheral neuropathy, primary aldosteronism, dyslipidemia, hyperprolactinemia, hypogonadotrophic hypogonadism, pituitary neoplasm, and severe NAHUN. He presents to the emergency department after syncopal episode as noted above. He denies any loss of bowel or bladder control. His is a nurse, and reports that she had checked his pulse and it was in the low 80s, as she was calling EMS. Allergies Allergy/AdvReac Type Severity Reaction Status Date / Time atorvastatin AdvReac Severe Leg Cramps Verified 04/02/24 22:50 Home Medications Medication Instructions Recorded Confirmed Type blood-glucose meter (Accu-Chek #1 ea 06/04/20 06/26/23 Rx Guide Glucose Meter) cholecalciferol (vitamin D3) 50 50 mcg PO DAILY 06/09/21 04/02/24 History mcg (2,000 unit) capsule cyanocobalamin (vitamin B-12) 1,000 mcg PO DAILY 02/25/22 04/02/24 History 1,000 mcg capsule magnesium oxide 400 mg PO DAILY #30 caps 02/25/22 04/02/24 Rx Accu-Chek Fastclix Lancet Drum #400 ea 10/21/22 06/26/23 Rx (lancets) empagliflozin 25 mg tablet 25 mg PO DAILY #90 tabs 03/20/23 04/02/24 Rx (Jardiance) blood sugar diagnostic (Accu-Chek #200 ea 05/22/23 06/26/23 Rx Guide test strips) testosterone 2 pump topical DAILY #225 grams 10/06/23 04/02/24 Rx semaglutide 1 mg/dose (4 mg/3 mL) 1 mg (0.75 mL) subcut Q7D 30 days 11/27/23 04/02/24 Rx subcutaneous pen injector (Ozempic) #3 mL pen needle, diabetic 32 gauge x #200 ea 12/04/23 Rx 5/32" (BD Ultra-Fine Danelle Pen Needle) amlodipine 10 mg tablet 10 mg PO DAILY #90 tabs 01/31/24 04/02/24 Rx eplerenone 50 mg tablet 50 mg PO BID #180 tabs 02/28/24 04/02/24 Rx hydrochlorothiazide 25 mg tablet 25 mg PO DAILY #90 tabs 02/28/24 04/02/24 Rx lisinopril 40 mg tablet 40 mg PO DAILY #90 tabs 02/28/24 04/02/24 Rx metformin 500 mg tablet 1,000 mg (2 x 500 mg) PO BID 90 02/28/24 04/02/24 Rx days #360 tabs Novolin N FlexPen 100 unit/mL (3 130 unit (1.3 mL) subcut HS 90 03/28/24 04/02/24 Rx mL) subcutaneous insulin pen days #120 mL (insulin NPH isoph U-100 human) ammonium lactate 12 % lotion 1 applic topical DAILY PRN 04/02/24 04/02/24 History NEEDED aspirin 81 mg tablet,delayed 81 mg PO DAILY 04/02/24 04/02/24 History release glimepiride 4 mg tablet 4 mg PO QPM 04/02/24 04/02/24 History liraglutide 0.6 mg/0.1 mL (18 mg/3 1.8 mg subcut DAILY 04/02/24 04/02/24 History mL) subcutaneous pen injector (Victoza 3-Shaji) rosuvastatin 5 mg tablet (Crestor) 5 mg PO WK 04/02/24 04/02/24 History Past Med/Surg History Problem List (Updated 04/02/24 @ 23:50 by Johanny Cosme PA-C) Acute hyperglycemia (Acute) Syncope (Acute) Overweight Vitamin D deficiency Background diabetic retinopathy associated with type 2 diabetes mellitus No significant past surgical history Hypertension 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 Diabetes type 2, controlled Dysesthesia Dyslipidemia Hyperprolactinemia Hypogonadotropic hypogonadism in male Loss of protective sensation of skin of foot Pituitary neoplasm Severe obstructive sleep apnea Social History Smoking Status: Never smoker Do You Dip or Chew Tobacco: No; Hx Alcohol Use: Yes (rarely) Hx Substance Use: No Preferred Language: Tunisian Communication Ability: Effective Inspector Screen Printing Required: No Beliefs That Will Affect Care: None Current Living Situation: Spouse and Family Feels Safe at Home: Yes Assistive Devices: Glasses Review of Systems Review of Systems: The patient denies chest pain, palpitations, shortness of breath, dyspnea on exertion, cough, lower extremity swelling, sore throat, fevers, chills, sweats, nausea, vomiting, diarrhea , constipation, abdominal pain, pelvic pain, blood in urine or stool, dysuria, urinary frequency or urgency, rash, abnormal bruising or bleeding, focal weakness, numbness or tingling in arms or legs, generalized arthralgias or myalgias, back or neck pain, or night sweats. The review of systems is otherwise negative other than for that already noted above, and at least 10 systems have been reviewed. Physical Exam Physical Exam: The patient is awake, alert and oriented 3, well developed and well nourished, normocephalic and atraumatic, lying in bed and in no acute distress. HEENT--PERRL, EOMI, mucous membranes and oropharynx dry. Neck--supple. No JVD. No bruits. Thyroid normal, trachea midline, no adenopathy. Heart--normal S1 and S2. No murmurs, rubs or gallops. Lungs--clear bilaterally, no respiratory distress, no accessory muscle use. Abdomen--normal bowel sounds and soft. Nontender. Nondistended, no hernias or masses, no organomegaly. Extremities--no cyanosis or clubbing. No edema. There are good distal pulses b/l. Dermatologic--normal skin turgor, normal color, no abnormal lymph nodes, no rash. Neurologic--cranial nerves II through XII grossly intact. Rheumatologic--normal range of motion. Psychiatric--normal affect. Results & Data Results & Data Vital Signs (Past 12 Hours) Vital Signs Temp Pulse Pulse Resp BP BP Pulse Ox 04/03/24 00:00 83 20 169/83 H 92 04/02/24 23:30 87 17 139/77 96 04/02/24 23:00 86 20 184/86 H 95 04/02/24 22:39 86 04/02/24 22:33 83 23 92 04/02/24 22:32 86 18 94 04/02/24 22:31 85 17 172/97 H 93 04/02/24 20:24 36.8 C 91 H 18 155/85 H 95 O2 Del Method 04/03/24 00:00 Room Air 04/02/24 23:30 Room Air 04/02/24 23:00 Room Air 04/02/24 22:39 04/02/24 22:33 Room Air 04/02/24 22:32 Room Air 04/02/24 22:31 Room Air 04/02/24 20:24 Room Air Laboratory Results Laboratory Results WBC 10.58 K/ul (4.8-10.8) 04/03/24 03:21 RBC 5.40 M/uL (4.70-6.10) 04/03/24 03:21 Hgb 15.5 g/dl (14.0-18.0) 04/03/24 03:21 Hct 43.8 % (42.0-52.0) 04/03/24 03:21 MCV 81.1 fL (80.0-100.0) 04/03/24 03:21 MCH 28.7 pg (25.0-34.0) 04/03/24 03:21 MCHC 35.4 g/dL (32.0-36.0) 04/03/24 03:21 RDW Std Deviation 39.1 fL (36.4-46.3) 04/03/24 03:21 RDW Coeff of Dior 13.6 % (11.5-14.5) 04/03/24 03:21 Plt Count 248 K/uL (130-400) 04/03/24 03:21 MPV 11.8 fL (9.4-12.4) 04/03/24 03:21 Immature Gran % (Auto) 0.3 % 04/03/24 03:21 Neut % (Auto) 64.5 % 04/03/24 03:21 Lymph % (Auto) 25.4 % 04/03/24 03:21 [place] % (Auto) 7.5 % 04/03/24 03:21 Eos % (Auto) 1.4 % 04/03/24 03:21 Baso % (Auto) 0.9 % 04/03/24 03:21 Neut # (Auto) 6.83 K/uL (1.40-6.50) H 04/03/24 03:21 Lymph # (Auto) 2.69 K/uL (1.20-3.40) 04/03/24 03:21 [place] # (Auto) 0.79 K/uL (0.11-0.59) H 04/03/24 03:21 Eos # (Auto) 0.15 K/uL (0.00-0.50) 04/03/24 03:21 Baso # (Auto) 0.09 K/uL (0.00-0.20) 04/03/24 03:21 Immature Gran # (Auto) 0.03 K/uL (0.01-0.20) 04/03/24 03:21 Sodium 136 mmol/L (136-145) 04/03/24 03:21 Potassium TNP 04/03/24 03:21 Chloride 102 mmol/L (98-107) 04/03/24 03:21 Carbon Dioxide 25 mmol/L (21-32) 04/03/24 03:21 Anion Gap 9 (3-11) 04/03/24 03:21 BUN 24 mg/dl (6-23) H 04/03/24 03:21 Creatinine 0.91 mg/dl (0.6-1.4) 04/03/24 03:21 Est Cr Clr Drug Dosing 119.2 ml/min 04/03/24 03:21 Est GFR ( Amer) 105.8 ml/min 04/03/24 03:21 Est GFR (Non-Af Amer) 91.3 ml/min 04/03/24 03:21 BUN/Creatinine Ratio 26.4 (10-20) H 04/03/24 03:21 Glucose 218 mg/dl (70-99(Fasting)) H 04/03/24 03:21 POC Glucose 278 mg/dl (70-99) H 04/02/24 23:43 Calcium 9.2 mg/dl (8.6-10.3) 04/03/24 03:21 Phosphorus 3.0 mg/dl (2.5-4.9) 04/03/24 03:21 Magnesium 2.0 mg/dl (1.7-2.4) 04/03/24 03:21 Total Bilirubin 0.5 mg/dl (0.2-1.0) 04/02/24 22:23 Direct Bilirubin TNP 04/03/24 03:21 AST TNP 04/03/24 03:21 ALT 65 U/L (7-52) H 04/02/24 22:23 Alkaline Phosphatase 69 U/L (34-104) 04/02/24 22:23 Troponin I High Sens 14.0 pg/ml (0-20) 04/03/24 03:21 Total Protein 6.5 gm/dl (6.0-8.3) 04/02/24 22:23 Albumin 4.1 gm/dl (3.4-5.0) 04/03/24 03:21 Globulin 2.6 gm/dl (2.5-4.0) 04/02/24 20:35 Albumin/Globulin Ratio 1.7 (0.9-2) 04/02/24 20:35 TSH 2.245 uIu/ml (0.300-4.500) 04/02/24 20:35 Urine Color Yellow 04/02/24 20:53 Urine Appearance Clear (Clear) 04/02/24 20:53 Urine pH 6.0 (4.5-7.5) 04/02/24 20:53 Ur Specific [place] 1.031 (1.000-1.030) H 04/02/24 20:53 Urine Protein Negative (Negative) 04/02/24 20:53 Urine Glucose (UA) 3+ (Negative) H 04/02/24 20:53 Urine Ketones Negative (Negative) 04/02/24 20: Urine Blood Negative (Negative) 04/02/24 20: Urine Nitrite Negative (Negative) 04/02/24 20: Urine Bilirubin Negative (Negative) 04/02/24 20: Urine Urobilinogen Negative (Negative) 04/02/24 20: Ur Leukocyte Esterase Negative (Negative) 04/02/24 20:[address] 04/02/24 20:28 Exam(s): CT C SPINE EXAM: CT Cervical Spine Without Intravenous Contrast CLINICAL HISTORY: Reason for exam: fall, injury. TECHNIQUE: Axial computed tomography images of the cervical spine without intravenous contrast. CTDI is 26.3 mGy and DLP is 647.9 mGy-cm. Automated exposure control was utilized for the study. A dose lowering technique was utilized adhering to the principles of ALARA. COMPARISON: No relevant prior studies available. FINDINGS: The vertebral body heights are maintained. The craniocervical junction is intact. The atlanto-dens interval is maintained. The dens is intact. There is no spondylolisthesis. Multilevel cervical spondylosis and degenerative disc disease. Straightening of the cervical lordosis. The unenhanced neck soft tissues are grossly unremarkable. The visualized lung apices are grossly clear. IMPRESSION: No acute fracture or subluxation of the cervical spine. Electronically signed by: Robles Jones MD 04/02/24 21:[address] 04/02/24 20:28 Exam(s): CT HEAD Without Contrast EXAM: CT Head Without Intravenous Contrast CLINICAL HISTORY: Reason for exam: syncope. TECHNIQUE: Axial computed tomography images of the head/brain without intravenous contrast. CTDI is 36.18 mGy and DLP is 624.41 mGy-cm. Automated exposure control was utilized for the study. A dose lowering technique was utilized adhering to the principles of ALARA. COMPARISON: Brain MRI May 07, 2021. FINDINGS: No acute intracranial hemorrhage. No midline shift or mass effect. The territorial guido-white matter differentiation is maintained throughout. Age-related cerebral volume loss. Periventricular and subcortical white matter hypoattenuation, consistent with chronic microangiopathy. The visualized orbits appear grossly unremarkable. The calvarium is intact. The visualized paranasal sinuses and mastoid air cells are grossly clear. IMPRESSION: No acute intracranial hemorrhage, midline shift, or mass effect. Electronically signed by: Robles Jones MD 04/02/24 21:23 PM Code Status & VTE Plan Code Status Full code VTE Prophylaxis Plan VTE Prophylaxis will be ordered: Yes PG Care Time/CCT Total # of Minutes Spent Total Time Spent with Patient: Total time spent is greater than 50% in coordination of care (as documented) at patient's floor/unit and/or counseling patient: Coding Level of Care Code 42335 INT INP/OBS CARE 3/75MIN Diagnoses Syncope R55 Syncope type: unspecified Acute hyperglycemia R73.9 Hypertension I10 Diabetic peripheral neuropathy associated with type 2 diabetes mellitus E11.42 Primary aldosteronism E26.09 Pituitary neoplasm D49.7 Severe obstructive sleep apnea G47.33 Hypogonadotropic hypogonadism in male E23.0 Dyslipidemia E78.5 (1) Syncope Syncope type: unspecified Qualified Code(s): R55 - Syncope and collapse
[2024-04-03 01:30] LABS: Alkaline Phosphatase 69 U/L (34-104); Bilirubin,Total 0.5 mg/dl (0.2-1.0); Total Protein 6.5 gm/dl (6.0-8.3)
[2024-04-03 01:35] LABS: Alanine Aminotransferase 65 U/L (7-52)
[2024-04-03] MEDS ORDERED: GLUCAGON FOR INJ 1 MG VIAL SQ PRN (02:28)
[2024-04-03] MEDS ORDERED: GLUCOSE 40% GEL 15 GM TUBE PO PRN (02:28)
[2024-04-03] MEDS ORDERED: CARBOHYDRATES FOR HYPOGLYCEMIA PO PRN (02:28)
[2024-04-03] MEDS ORDERED: DEXTROSE 50% 50 ML SYRINGE IV PRN (02:28)
[2024-04-03] MEDS ORDERED: GLUCOSE 10 TAB/TUBE PO PRN (02:28)
[2024-04-03 03:49] LABS: Basophils # (auto) 0.09 K/uL (0.00-0.20); Basophils % (auto) 0.9 %; Eosinophils # (auto) 0.15 K/uL (0.00-0.50); Eosinophils % (auto) 1.4 %; Hematocrit (blood only) 43.8 % (42.0-52.0); Hemoglobin 15.5 g/dl (14.0-18.0); Immature Granulocytes # (auto) 0.03 K/uL (0.01-0.20); Immature Granulocytes % (auto) 0.3 %; Lymphocytes # (auto) 2.69 K/uL (1.20-3.40); Lymphocytes % (auto) 25.4 %; Mean Corpuscular Hemoglobin 28.7 pg (25.0-34.0); Mean Corpuscular Hgb Conc 35.4 g/dL (32.0-36.0); Mean Corpuscular Volume 81.1 fL (80.0-100.0); Mean Platelet Volume 11.8 fL (9.4-12.4); Monocytes # (auto) 0.79 K/uL (0.11-0.59); Monocytes % (auto) 7.5 %; Neutrophils # (auto) 6.83 K/uL (1.40-6.50); Neutrophils % (auto) 64.5 %; Platelet Count 248 K/uL (130-400); RDW Coefficient of Variation 13.6 % (11.5-14.5); RDW Standard Deviation 39.1 fL (36.4-46.3); White Blood Count 10.58 K/ul (4.8-10.8)
[2024-04-03 04:42] LABS: Albumin Level 4.1 gm/dl (3.4-5.0); Anion Gap 9 (3-11); BUN Creatinine Ratio 26.4 (10-20); Blood Urea Nitrogen 24 mg/dl (6-23); Calcium 9.2 mg/dl (8.6-10.3); Carbon Dioxide 25 mmol/L (21-32); Chloride 102 mmol/L (98-107); Creatinine Clr Calc Pharmacy 119.2 ml/min; Est GFR (African American) 105.8 ml/min; Est GFR (Non-African American) 91.3 ml/min; Glucose 218 mg/dl (70-99(Fasting)); Sodium 136 mmol/L (136-145)
[2024-04-03] MEDS: ACETAMINOPHEN 325 MG TAB PO PRN (04:42)
[2024-04-03 06:29] LABS: Bilirubin Direct 0.1 mg/dl (0-0.2); Potassium 3.8 mmol/L (3.5-5.1)
--- NOTE | 2024-04-03 07:08 | XRay Report ---
XR chest 1V portable HISTORY: 58 years-old Male syncope acute syncope COMPARISON: None TECHNIQUE: PA view of the chest FINDINGS: Cardiac silhouette is enlarged. The right lateral costophrenic angle is partially excluded from the f [id number]. No pneumothorax, pleural effusion or airspace consolidation. Spondylitic spurring of th e spine. IMPRESSION: No acute process. ACT 112: Negative or not required by law. The above report was generated using voice recognition software. It may contain grammatical, syntax o r spelling errors. Electronically signed by: Charles Davalos M.D. 04/03/2024 7:07 AM
[2024-04-03 07:27] LABS: Estimated Average Glucose 186 mg/dl; Hemoglobin A1C 8.1 % (4.5-5.6)
[2024-04-03] MEDS: INSULIN ASPART PER UNIT CHARGE SC SCH (08:12)
[2024-04-03] MEDS: hydroCHLOROthiazide 25 MG TAB PO SCH (08:17)
[2024-04-03] MEDS: MAGNESIUM OXIDE 400 MG TAB PO SCH (08:18)
[2024-04-03] MEDS ORDERED: Nursing to Pharmacy Communication SCH (08:30)
[2024-04-03] MEDS ORDERED: ASPIRIN 81 MG ECTAB PO SCH ×2 (09:00→21:00)
[2024-04-03] MEDS ORDERED: CHOLECALCIFEROL 25 MCG (1000 UNITS) TAB PO SCH ×3 (09:00→21:00)
[2024-04-03] MEDS ORDERED: lisinopril 40 MG TAB PO SCH ×2 (09:00→21:00)
[2024-04-03] MEDS ORDERED: amLODIPine BESYLATE 5 MG TAB PO SCH ×2 (09:00→21:00)
[2024-04-03] MEDS ORDERED: CYANOCOBALAMIN (B-12) 500 MCG TABLET PO SCH ×2 (09:00→21:00)
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
--- NOTE | 2024-04-03 09:48 | XCELERA ---
[id number]
--- NOTE | 2024-04-03 10:28 | Discharge Summary ---
Date of Service April 03, 2024 Admission HPI Per Admitting Provider The patient is a 58-year-old male with a past medical history including vitamin D deficiency, background diabetic retinopathy, diabetes mellitus type 2, hypertension, diabetic peripheral neuropathy, primary aldosteronism, dyslipidemia, hyperprolactinemia, hypogonadotrophic hypogonadism, pituitary neoplasm, and severe NAHUN. He presents to the emergency department after syncopal episode as noted above. He denies any loss of bowel or bladder control. His is a nurse, and reports that she had checked his pulse and it was in the low 80s, as she was calling EMS. Principal Diagnosis syncope Discharge Exam The patient is awake, alert and oriented 3, lying in bed and in no acute distress. HEENT--PERRL, EOMI, Neck--supple. No JVD. No bruits. Thyroid normal, trachea midline, no adenopathy. Heart--normal S1 and S2. No murmurs, rubs or gallops. Lungs--clear bilaterally, no respiratory distress, no accessory muscle use. Abdomen--normal bowel sounds and soft. Nontender. Nondistended, no hernias or masses, no organomegaly. Extremities--no cyanosis or clubbing. No edema. There are good distal pulses b/l. Neurologic--cranial nerves II through XII grossly intact. Discharge Data Allergies Allergy/AdvReac Type Severity Reaction Status Date / Time atorvastatin AdvReac Severe Leg Cramps Verified 04/02/24 22:50 Consultations 04/02/24 23:17 ED Decision to Admit Stat 04/03/24 02:28 Consult Cardiology Routine Ordered Studies 04/02/24 20:28 CT cervical spine wo con Stat CT head/brain wo con Stat Hospital Course (1) Syncope: (2) Acute hyperglycemia: (3) Hypertension: (4) Diabetic peripheral neuropathy associated with type 2 diabetes mellitus: (5) Primary aldosteronism: (6) Pituitary neoplasm: (7) Severe obstructive sleep apnea: (8) Hypogonadotropic hypogonadism in male: (9) Dyslipidemia: Plan Syncope- Glucose was noted to be 336 on admission, patient reports eating a pie rich in carbohydrates at his 30 anniversary dinner No other significant abnormality noted metabolically No loss of bowel or bladder control or postictal state suggestive of a seizure. His , who is a nurse, was with him the entire time, and noticed that he did in fact pass out. Denies any associated palpitations Cardiology stated patient can be discharged. Dr. Donovan recommended to continue outpatient monitoring. This will include a lexiscan stress test. He may also consider a loop recorder. Diabetes mellitus- Glucose 336 as noted Hold empagliflozin, glimepiride, Victoza, metformin and semaglutide inpatient will resume at discharge. 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 Donovan's office, they will call Pt to schedule follow up.) Abel Bowens MD [Primary Care Provider] - Diet: Carb Consistent or DM2 and Heart Healthy Addtl Attending Provider Instructions: Good morning Mr. Orourke, You were seen for passing out briefly. You were evaluated by Dr. Donovan from Cardiology. While you were here, we did an echocardiogram to assess the wall motion of your heart, strength/effectiveness of each heart beat, and also checking on your heart valves. This was normal. Dr. Donovan recommended to continue outpatient monitoring. This will include a lexiscan stress test. He may also consider a loop recorder. He did not recommend any changes to your medications. It was a pleasure. Kindest regards, Elpidio Haas Pending Studies at Discharge: No Stand-Alone Forms: My [facility] [id number], Smoking Cessation Medications and DC Order Prescriptions: Continued (DME) blood-glucose meter [Accu-Chek Guide Glucose Meter] Misc See Dose Instructions .ROUTE .MEDSUPPLY Qty: 1 0RF Rx Instructions: As directed (DME) lancets [Accu-Chek Fastclix Lancet Drum] Misc See Dose Instructions .ROUTE .MEDSUPPLY Qty: 400 3RF Rx Instructions: Test blood sugars 4 times a day Jardiance 25 mg tablet 25 mg PO DAILY Qty: 90 3RF (DME) Accu-Chek Guide test strips Strip See Rx Instructions .ROUTE .MEDSUPPLY Qty: 200 3RF Rx Instructions: Test blood sugars 2 times a day testosterone 20.25 mg/1.25 gram (1.62 %) gel in metered-dose pump 2 pump topical DAILY Qty: 225 0RF Rx Instructions: apply 1 pump amount over max area of EACH upper arm and shoulder 05/05/23 PDMP Queried ok to fill - TR (DME) pen needle, diabetic [BD Ultra-Fine Danelle Pen Needle] 32 gauge x 5/32" needle See Rx Instructions .ROUTE .MEDSUPPLY Qty: 200 3RF Dose Instruction: As directed Rx Instructions: Inject 2 times daily amlodipine 10 mg tablet 10 mg PO DAILY Qty: 90 3RF eplerenone 50 mg tablet 50 mg PO BID Qty: 180 3RF hydrochlorothiazide 25 mg tablet 25 mg PO DAILY Qty: 90 3RF lisinopril 40 mg tablet 40 mg PO DAILY Qty: 90 3RF metformin 500 mg tablet 1,000 mg PO BID 90 Days Qty: 360 3RF Novolin N FlexPen 100 unit/mL (3 mL) insulin pen 130 unit subcut HS 90 Days Qty: 120 1RF cholecalciferol (vitamin D3) 50 mcg (2,000 unit) capsule 50 mcg PO DAILY cyanocobalamin (vitamin B-12) 1,000 mcg capsule 1,000 mcg PO DAILY magnesium oxide 400 mg magnesium capsule 400 mg PO DAILY Qty: 30 0RF Ozempic 1 mg/dose (4 mg/3 mL) pen injector 1 mg subcut Q7D 30 Days Qty: 3 1RF Rx Instructions: PER PT "HAVING TROUBLE GETTING FROM PHARMACY, TAKING VICTOZA INSTEAD AT PRESENT". aspirin 81 mg Tablet,Delayed Release (Dr/Ec) 81 mg PO DAILY Victoza 3-Shaji 0.6 mg/0.1 mL (18 mg/3 mL) pen injector 1.8 mg SUBCUT DAILY ammonium lactate 12 % lotion 1 applic topical DAILY PRN (Reason: NEEDED) Rx Instructions: Apply to feet daily glimepiride 4 mg tablet 4 mg PO QPM Rx Instructions: PER PT "IF HAVING A LARGE MEAL AT NIGHT, WILL TAKE 4 MG THE NEXT AM". rosuvastatin [Crestor] 5 mg tablet 5 mg PO WK Rx Instructions: SUNDAYS Discharge Orders: Discharge Order (Routine); Ordered 04/03/24 Ordered By: Elpidio Plasencia/Other Patient Handouts: Managing Type 2 Diabetes, Special Foot Care for Diabetes Admission Data Admit Date/Time: 04/03/24 00:24 Attending Provider: Elpidio Haas Admit Provider: Too Avitia Primary Care Provider: Abel Bowens Other Providers: Too Avitia; Praful Hardin Other Interventions: Discharge Summary Assessment (RN) Last Done: 04/03/24 10:43 Coding Level of Care Code 42632 INP/OBS DISCH >30 MIN Diagnoses Syncope R55 Syncope type: unspecified Acute hyperglycemia R73.9 Hypertension I10 Diabetic peripheral neuropathy associated with type 2 diabetes mellitus E11.42 Primary aldosteronism E26.09 Pituitary neoplasm D49.7 Severe obstructive sleep apnea G47.33 Hypogonadotropic hypogonadism in male E23.0 Dyslipidemia E78.5
--- NOTE | 2024-04-03 11:51 | Electrocardiogram Report ---
Test Reason : Blood Pressure : / mmHG Vent. Rate : 091 BPM Atrial Rate : 091 BPM P-R Int : 210 ms QRS Dur : 156 ms QT Int : 404 ms P-R-T Axes : 048 -28 127 degrees QTc Int : 496 ms Sinus rhythm with 1st degree A-V block Left bundle branch block Abnormal ECG When compared with ECG of 08-AUG-2004 10:37, AL interval has increased Left bundle branch block is now Present Confirmed by Butch Donovan ([id number]) on 04/03/2024 11:51:13 AM Referred By: REFERRED SELF Confirmed By:Jayme Donovan
[2024-04-03] MEDS ORDERED: INSULIN HUMAN NPH SC SCH (16:30)
== END 2024-04-03 11:10 | disposition home or self-care (01) ==
LOC: 2S 20:12 → ED 20:12 → SUATTDRO 04-03 00:24 → 2S 04-03 01:55